=== PATIENT | male | born 1990 | race Caucasian/White ===

== ENCOUNTER → 2017-12-14 | Outpatient (CLI) | payer BC ==
[~2017-12-14] MED LIST: METH10TA4 PO
--- NOTE | 2017-12-14 14:12 | DIAGNOSTIC IMAGING REPORT ---
LUMBAR SPINE W/O CONTRAST CLINICAL HISTORY: 27 years-old Male with M54.5 Low back pain. Chronic low back pain with radiation into the bilateral lower extremities COMPARISON: Lumbar spine radiographs 05/28/2014. TECHNIQUE: Multiplanar, multi sequence MRI of the lumbar spine was performed without intravenous contrast. 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 There is straightening of the normal lumbar lordosis. No acute fracture or subluxation. No focal bone marrow or soft tissue edema. Conus medullaris terminates at the L1 level. Signal within the imaged thoracic spinal cord is within normal limits. The cauda equina appear unremarkable. There is a 4 mm synovial cyst posterior to the left L5 facet. No acute intra-abdominal or intrapelvic abnormality identified. No aortic aneurysm or adenopathy. T12-L1: No central canal or neural foraminal stenosis. L1-L2: Mild disc desiccation with mild intervertebral disc space narrowing. No large disc bulge, significant central canal or foraminal narrowing. L2-L3: Mild disc desiccation with mild intervertebral disc space narrowing. Additionally, there is a small posterior disc bulge which flattens the ventral thecal sac. No central canal or foraminal narrowing. L3-L4: No central canal or neural foraminal stenosis. L4-L5: No central canal or neural foraminal stenosis. Mild ligamentum flavum thickening. L5-S1: Small posterior disc bulge. No central canal or foraminal narrowing. IMPRESSION: 1. Mild disc desiccation and mild intervertebral disc space narrowing at L1-L2 and L2-L3 without significant central canal or foraminal narrowing. 2. Very small posterior disc bulges are seen at L2-L3 and L5-S1. 3. 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 4. Mild straightening of the normal lumbar lordosis may be secondary to paraspinal muscle spasm or patient positioning. The above report was generated using voice recognition software. It may contain grammatical, syntax or spelling errors. Electronically signed by: Rupesh Rasheed M.D. 12/14/2017 2:11 PM Dictated Date/Time: 12/14/2017 2:03 PM
== END | disposition home or self-care (01) ==
LOC: C.MRI 13:17
PROVIDERS: ATTEND Internal Medicine
DX: M54.5 Low back pain (principal); R93.7 Abnormal findings on diagnostic imaging of other parts of musculoskeletal system